=== PATIENT | female | born 1960 | race Caucasian/White ===

== ENCOUNTER 2019-09-29 07:09 | Inpatient (IN) | payer OTHER ==
[2019-09-20 13:59] VITALS: BMI 24.6
--- NOTE | 2019-09-26 12:08 | HP ---
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 Mammogram (10/2018) and MRI (03/2019) were negative. Patient is now presenting for prophylactic mastectomy with implant reconstruction. History Source: Patient Limitations to Obtaining History: No Limitations - Past Medical History Cardiovascular: Yes: Other (Mitral valve disorder) Gastrointestinal: Yes: Inflamatory Bowel Disease (Crohn's dz) ...: No - Advance Directives Advance Directives: Yes: Living Will, Health Care Proxy - Smoking History Smoking history: Former smoker Have you smoked in the past 12 months: No If you are a former smoker, when did you quit?: 1999 - Alcohol/Substance Use Hx Alcohol Use: Yes (1 DRINK- 5 TIMES PER WEEK) Home Medications - Allergies Allergies/Adverse Reactions: Allergies Allergy/AdvReac Type Severity Reaction Status Date / Time iron dextran complex Allergy Severe HIVES, Verified 09/20/19 13:36 RESPIRATORY DISTRESS - Home Medications Home Medications: Ambulatory Orders Adalimumab [Humira(Cf) Pen] 80 mg SQ ASDIR 09/20/19 Alprazolam [Xanax] 0.5 mg PO PRN PRN 09/20/19 Dextroamphetamine/Amphetamine [Adderall 10 mg Tablet] 10 mg PO PRN PRN 09/20/19 Pantoprazole Sodium 40 mg PO DAILY PRN 09/20/19 Family Medical History Family Hx Cancer: Grandmother (paternal) (breast cancer at 80), Mother (breast cancer at 80), Daughter (breast cancer), Brother (prostate cancer at 65) Other Family History: mat cousin breast cancer at 50. pat aunt breast cancer at 70. mat cousin prostate cancer at 60. mat cousin colon cancer at 50 Review of Systems - Review of Systems Constitutional: reports: No Symptoms Cardiovascular: reports: No Symptoms Respiratory: reports: No Symptoms Breasts: reports: No Symptoms Reported Physical Examination Constitutional: Yes: Well Nourished, Calm Breast(s): Yes: Other (Ptotic C-cup breasts without significant skin changes or nipple discharge. No palpable suspicious masses or adenopathy noted bilaterally.) Problem List - Problems (1) At high risk for breast cancer Code(s): Z91.89 - [facility] PERSONAL RISK FACTORS, NOT ELSEWHERE CLASSIFIED (2) Family history of breast cancer Code(s): Z80.3 - FAMILY HISTORY OF MALIGNANT NEOPLASM OF BREAST (3) Positive test for genetic breast cancer susceptibility marker Code(s): Z15.01 - GENETIC SUSCEPTIBILITY TO MALIGNANT NEOPLASM OF BREAST Assessment/Plan Plan: Bilateral mastectomy with reconstruction
[2019-09-29] MEDS ORDERED: BUPIVACAINE HCL/PF 2.5 MG/ML - 30 ML VIAL IJ ONE (08:18)
[2019-09-29] MEDS ORDERED: ceFAZolin SODIUM 1 GM VIAL ONE ×3 (08:18→11:14)
[2019-09-29] MEDS ORDERED: LIDOCAINE 1%/EPI 1:100000 (20 ML MULTI DOSE VIAL) ONE (08:18)
[2019-09-29] MEDS ORDERED: GENTAMICIN SO4 80 MG/2 ML VIAL ONE (08:18)
[2019-09-29] MEDS ORDERED: SUCCINYLCHOLINE CHLORIDE 200 MG/10 ML SYRINGE ONE (08:26)
[2019-09-29] MEDS ORDERED: PROPOFOL 20 ML ONE ×2 (08:26)
[2019-09-29] MEDS ORDERED: fentaNYL CITRATE 250 MCG/5 ML VIAL ONE (08:26)
[2019-09-29] MEDS ORDERED: EPHEDRINE SULFATE/0.9% NACL/PF 50 MG/10 ML SYRINGE NR ONE (08:27)
[2019-09-29] MEDS ORDERED: ROCURONIUM BROMIDE 50 MG/5 ML SYRINGE ONE ×2 (08:27→11:17)
[2019-09-29] MEDS ORDERED: MIDAZOLAM HCL 2 MG/2 ML SINGLE DOSE VIAL ONE (08:27)
[2019-09-29] MEDS ORDERED: BUPIVACAINE LIPOSOME/PF (EXPAREL) 266 MG/20 ML VIAL ONE (09:28)
[2019-09-29] MEDS ORDERED: SCOPOLAMINE HYDROBROMIDE 1 PATCH PATCH.TD72 ONE (09:40)
[2019-09-29] MEDS ORDERED: ONDANSETRON 4 MG/2 ML VIAL ONE ×3 (09:48→11:14)
[2019-09-29] MEDS ORDERED: DEXAMETHASONE SOD PHOSPHATE 4 MG/1 ML VIAL ONE ×3 (09:48→11:14)
[2019-09-29] MEDS ORDERED: HYDROmorphone HCL/PF 1 MG/ML AMP ONE (10:56)
[2019-09-29] MEDS ORDERED: LIDOCAINE HCL/PF 2% SDV 5ML VIAL ONE ×2 (11:15→12:35)
[2019-09-29] MEDS ORDERED: NEOSTIGMINE METHYLSULFATE 0.5 MG/ML - 10 ML MDV ONE (11:15)
[2019-09-29] MEDS ORDERED: ZOLPIDEM TARTRATE 5 MG TABLET PO PRN (11:40)
[2019-09-29] MEDS ORDERED: ONDANSETRON 4 MG/2 ML VIAL IVPUSH PRN (11:40)
[2019-09-29] MEDS ORDERED: PANTOPRAZOLE 40 MG TABLET (FP) PO PRN (11:41)
[2019-09-29] MEDS ORDERED: PATIENT'S OWN MEDICATION (NON-FORMULARY) (Dextroamphetamine/Amphetamine [Adderall 10 Mg Ta PO PRN (11:41)
[2019-09-29] MEDS ORDERED: DEXTROSE 5%-0.45% SALINE 1,000 ML IV SCH (11:45)
[2019-09-29] MEDS ORDERED: ADALIMUMAB 80 MG SQ SCH (11:45)
[2019-09-29] MEDS ORDERED: METOPROLOL TARTRATE 5 MG/5 ML VIAL ONE (12:35)
--- NOTE | 2019-09-29 12:50 | OP ---
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
--- NOTE | 2019-09-29 12:51 | SURG ---
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 For further detail, please refer to operative report. Visit type - Case Type Case Type: Scheduled - Emergency Emergency Visit: No - New patient This patient is new to me today: Yes Date on this admission: 09/29/19
[2019-09-29] MEDS ORDERED: LACTATED RINGERS SOLUTION 1,000 ML IV SCH (13:15)
[2019-09-29] MEDS: oxyCODONE HCL 5 MG TABLET PO PRN ×2 (14:20→21:37)
[2019-09-29] MEDS: ACETAMINOPHEN 325 MG TABLET (FP) PO PRN (14:25)
[2019-09-29] MEDS: CEFAZOLIN 1 GM/D5W 1 GM/50 ML BAG IVPB SCH ×2 (16:00→21:37)
[2019-09-30] MEDS: oxyCODONE HCL 5 MG TABLET PO PRN ×3 (01:30→09:58)
[2019-09-30] MEDS: ACETAMINOPHEN 325 MG TABLET (FP) PO PRN ×2 (01:31→05:36)
[2019-09-30] MEDS: CEFAZOLIN 1 GM/D5W 1 GM/50 ML BAG IVPB SCH ×2 (03:29→10:03)
[2019-09-30 06:56] VITALS: BP 109/65; PULSE 81; TEMP 97.4
[2019-09-30 08:10] LABS: HEMATOCRIT 33.2 % (32.4-45.2); HEMOGLOBIN 11.3 GM/dl (10.7-15.3); MCH 31.1 pg (25.7-33.7); MEAN CELL VOLUME 91.6 fl (80-96); MEAN PLT VOLUME 10.4 fl (7.5-11.1); PLATELET COUNT 272 K/MM3 (134-434); RBC 3.62 M/mm3 (3.60-5.2); RDW 12.5 % (11.6-15.6); WHITE BLOOD COUNT 13.9 K/mm3 (4.0-10.8)
--- NOTE | 2019-09-30 10:27 | PN ---
Progress Note, Physician Chief Complaint: S/P bilateral mastectomy with implant reconstruction POD#1 History of Present Illness: Patient was seen today and reports minimal pain. She is tolerating po well and wishes to go home today. - Current Medication List Current Medications: Active Medications Acetaminophen (Tylenol -) 650 mg PO Q4H PRN PRN Reason: FEVER Last Admin: 09/30/19 05:36 Dose: 650 mg Fentanyl (Sublimaze Injection -) 50 mcg IVPUSH [id number] PRN PRN Reason: PAIN-PACU ORDER X 4 DOSES ONLY Last Admin: 09/29/19 13:10 Dose: 50 mcg Cefazolin Sodium (Ancef 1 Gm Premixed Ivpb -) 1 gm in 50 mls @ 100 mls/hr IVPB Q6H-IV CHEPE Stop: 10/06/19 14:59 Last Admin: 09/30/19 10:03 Dose: 100 mls/hr Dextrose/Sodium Chloride (D5-1/2ns -) 1,000 mls @ 100 mls/hr IV ASDIR CHEPE Lactated Ringer's (Lactated Ringers Solution) 1,000 mls @ 125 mls/hr IV ASDIR CHEPE Non-Formulary Medication (Adalimumab [Humira(Cf) Pen]) 80 mg SQ ASDIR CHEPE Non-Formulary Medication (Dextroamphetamine/Amphetamine [Adderall 10 Mg Tablet] ) 10 mg PO PRN PRN PRN Reason: ADD Ondansetron HCl (Zofran Injection) 4 mg IVPUSH Q6H PRN PRN Reason: NAUSEA AND/OR VOMITING Oxycodone HCl (Roxicodone -) 10 mg PO Q4H PRN PRN Reason: PAIN LEVEL 6-10 Last Admin: 09/30/19 09:58 Dose: 10 mg Pantoprazole Sodium (Protonix -) 40 mg PO DAILY PRN PRN Reason: INDIGESTION Zolpidem Tartrate (Ambien -) 5 mg PO HS PRN PRN Reason: Insomnia - Objective Vital Signs: Vital Signs Temperature 97.4 F L 09/30/19 06:00 Pulse Rate 81 09/30/19 06:00 Respiratory Rate 18 09/30/19 06:00 Blood Pressure 109/65 09/30/19 06:00 O2 Sat by Pulse Oximetry (%) 96 09/30/19 08:58 Constitutional: Yes: Well Nourished, Calm Breast(s): Yes: Other (Flaps are warm. Left with more ecchymosis noted then the right. The nipple is slightly dusky and medial ecchymosis noted as well. Steristrips are intact. GILL x 4 with serosanginous discharge noted.) Labs: CBC, BMP 09/30/19 07:47 Problem List - Problems (1) At high risk for breast cancer Code(s): Z91.89 - OTH PERSONAL RISK FACTORS, NOT ELSEWHERE CLASSIFIED (2) Family history of breast cancer Code(s): Z80.3 - FAMILY HISTORY OF MALIGNANT NEOPLASM OF BREAST (3) Positive test for genetic breast cancer susceptibility marker Code(s): Z15.01 - GENETIC SUSCEPTIBILITY TO MALIGNANT NEOPLASM OF BREAST Assessment/Plan Assess: S/P bilateral mastectomy with implant reconstruction POD#1 Plan; Stable for discharge today Followup with Dr. Bright next week. Pain meds and axbx at home Teach GILL monitoring
--- NOTE | 2019-09-30 11:14 | OP ---
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 PROCEDURE: Bilateral nipple-sparing mastectomies through an inframammary approach with bilateral prepectoral direct implant reconstruction with Cortiva. There were no complications. PRIMARY SURGEON: Sylvia Bright MD BANQUET COORDINATOR: Cinda Love physician financial sales assistant PLASTIC SURGEON: Sylvia Barron MD ANESTHESIA: General laryngeal mask area anesthesia. INDICATION: Briefly, the patient is a 59-year-old G3, P3 white post-menopausal female of Ashkenazi [employer] heritage. She has a strong family history with her daughter, who had triple negative breast cancer at age 35, and her maternal cousin had triple negative breast cancer at age 50. Her mother had breast cancer at age 80. Her brother had prostate cancer at age 65. A paternal aunt had breast cancer at age 70 and her paternal great-grandmother had breast cancer at age 80. A maternal cousin had prostate cancer at age 60 and another maternal cousin had colon cancer at age 50. Both the patient and her daughter tested PALB2 positive. She had mammography in October of 2018 which was negative and an MRI in March 2019 which was negative. She was seen in consultation regarding risk reduction strategies for breast cancer and chose to have risk reduction prophylactic bilateral mastectomies. She understood our technique of a nipple-sparing mastectomy through an inframammary approach and direct implant reconstruction. She understood all risks and complications of the procedure, including the risk of skin flap necrosis, nipple loss, hematoma and infection. She understood that we do retroareolar biopsies at the time of surgery. If these show cancer, we would remove the nipples. She understood the lack of any evidence prophylactic sentinel lymph node biopsy. The patient decided to go forward with the surgery. PROCEDURE IN DETAIL: The patient was brought in on September 29, 2019. In the holding area, site verification was made and informed consent was obtained. She was marked preoperatively by the plastic surgeon. The patient was brought into the operating room and laid on the OR table in the supine position. She received two grams of Ancef prior to incision. Both breasts were sterilely prepped and draped in the usual fashion. Venodynes were placed on her lower extremities prior to induction. She underwent general laryngeal mask anesthesia and was sterilely prepped and draped in the usual fashion. The left mastectomy was performed first. Inframammary incisions were marked out bilaterally about 10 cm in length. The left mastectomy was performed through this inframammary incision. The skin edges were everted and the breast was retracted inferiorly using Walker clamps. The skin flap was raised using the PEAK radiofrequency device, raising the skin flap superiorly to the level of the clavicle, medially to the level of the sternum, laterally to the level of the latissimus and inferiorly below the level of the inframammary fold. The breast was taken out off the pectoralis major muscle from inferomedial to superolateral and completely removed intact. It was oriented with a long lateral short-tip suture and weighed to allow for appropriate cosmetic result. A retroareolar biopsy was taken underneath the left nipple-areolar complex and sent for frozen section. It came back negative and the left nipple was able to be spared. Again, hemostasis was achieved. The skin flaps were inspected to remove all visible breast tissue and they were trimmed to allow for a good cosmetic result. At this point, the right mastectomy was performed, again through a symmetrical inframammary incision about 10 cm in length. Again, the skin edges were everted and the breast was retracted inferiorly using Walker clamps. The skin flap was again raised using the PEAK radiofrequency device superiorly to the level of the clavicle, medially to the level of the sternum, laterally to the level of the latissimus and inferiorly below the level of the inframammary fold. The breast was taken out off the pectoralis major muscle, again using electrocautery from inferomedial to superolateral and completely removed intact. It was oriented with a long lateral short-tip suture and weighed to allow for appropriate cosmetic result. Both breasts were placed in formalin after having been oriented with the long lateral short-tip sutures and sent to pathology as specimen. A retroareolar biopsy was taken underneath the right nipple-areolar complex and sent for frozen section. It came back negative, so the right nipple was spared as well. Hemostasis was achieved. The skin flaps were inspected to remove all visible breast tissue and they were trimmed to allow for a good cosmetic result. Hemostasis was achieved. The wound was copiously irrigated with warm sterile saline. The SPY skin perfusion device was then used during the case and showed good blood flow bilaterally to the skin flaps. At this point, Dr. Barron performed bilateral prepectoral direct implant reconstruction using Cortiva acellular dermal matrix. This will be dictated separately by Dr. Barron. All wounds will be closed separately by Dr. Barron. Rafael drains will be placed prior to closure. All sponge and needle counts were correct at this point in the case. Estimated blood loss was about 125 mL. She was hemodynamically stable. After the reconstruction, the patient will have the laryngeal mask airway tube removed and will be recovered in the post-anesthesia care unit. She will be admitted postoperatively for pain and wound management. We did inject 30 mL of Exparel into the chest wall on both mastectomy sites bilaterally for a total of 60 mL. SYLVIA BRIGHT M.D. [id number]
--- NOTE | 2019-10-03 09:02 | OP ---
DATE OF OPERATION: 09/29/2019 PREOPERATIVE DIAGNOSES: 1. Bilateral acquired chest wall deformity status post bilateral mastectomy (611.89). 2. Personal history of genetic carcinoma. POSTOPERATIVE DIAGNOSES: 1. Bilateral acquired chest wall deformity status post bilateral mastectomy (611.89). 2. Personal history of genetic carcinoma. PROCEDURE: 1. Right immediate breast reconstruction utilizing immediate insertion of silicone breast implant and AlloDerm reconstruction. 2. Left immediate breast reconstruction utilizing immediate insertion of silicone breast implant and AlloDerm reconstruction. 3. Intravenous injection of indocyanine green dye and intraoperative diagnostic evaluation of non-coronary intraoperative fluorescein vascular angiography x 2. SURGEON: Dr. Radha Barron OBGYN SPECIALIST SURGEON: EDVIN Yoon ANESTHESIA: General. ANESTHESIOLOGIST: OPERATIVE PROCEDURE IN DETAIL: The patient was taken to the operating room. After induction of general anesthesia in the supine position, both arms were extended and padded. Venodyne boots were placed. The entire chest wall was painted with ChloraPrep solution over its entire extent, and sterile drapes were placed in the usual fashion. The markings, which had been made in the standing position preoperatively, were reoutlined with the patient's knowledge. Time-out procedure was performed. Attention was turned by Dr. Sylvia Bright to the mastectomies. Bilateral inframammary incisions were made and Dr. Sylvia Bright performed mastectomies. This will be dictated under separate cover. Upon completion of the mastectomies, the wounds were copiously irrigated and attention was turned to the right breast. A subpectoral dissection was begun on the right breast, superiorly from the second rib, medially to the sternal fibers, and down to the inframammary fold, elevating the pectoralis major muscle from its insertion. At this point, an 8.0 x 16.0 sheet of AlloDerm was brought into the field and sutured superiorly along the pectoralis major muscle after rehydration. This was carried along the lateral mammary fold and down the side of the breast reconstruction. At this point, a Sientra smooth, round, high profile 470 mL style 107 implant was chosen. The left breast tissue removed was 312 gm, and the right breast approximately 238 gm. This implant was placed and then sutured with 3-0 Vicryl suture continued along the inframammary fold, completely covering the implant itself. She had Cortiva 1-mm allograft dermis 16 x 20 cm placed over each implant and sutured to a 15 x 15 sheet of ProGrip mesh and placed in a subpectoral position. The exact same procedure was carried out symmetrically on the opposite breast, also placing a Sientra smooth, round, high profile 470 mL style 107 implant in the same subpectoral pocket. Good symmetry was seen in the sitting position. After the implants were in place, the patient was injected with 10 mL of Isocyanide green dye and the Spy imaging system was brought into the field. The skin flowed to the right and left breasts and the nipple areolar complex, and the entire skin flaps were evaluated and seen to be viable with good blood flow. Two 15 Rafael drains were brought out through separate stab wounds laterally. The Spy showed good viability of the skin and tissues. The Smart Infuser pump catheter was inserted medially and into the subpectoral position. Both wounds were closed symmetrically using 3-0 PDS suture on the deep tissue, 3-0 in a deep dermal fashion, and 4-0 in a subcuticular fashion. Both wounds were dressed sterilely with Mastisol and Steri-Strips with a surgical bra and a compression strap. The patient tolerated the procedure well. She was awakened, extubated and transferred to the recovery room in satisfactory condition. The boilermaker's assistant was present during the entire portion of the operation and closure. SYLVIA BARRON M.D. [id number]
--- NOTE | 2019-10-03 14:26 | PATH ---
Surgical Pathology Report Patient Name: BRIDGETTE PEDERSEN [facility]. Rec. #: [id number] /Age/Gender: 1960 (Age: 59) / F Account: [id number] Location: [facility] MED-SURG Taken: 09/29/2019 Received: 09/29/2019 Reported: 10/03/2019 Physicians: Jeffrey Bright M.D. Specimen(s) Received A: RIGHT RETROAREOLAR BIOPSY (FS) B: LEFT RETROAREOLAR BIOPSY (FS) C: RIGHT BREAST MASTECTOMY D: LEFT BREAST MASTECTOMY Clinical History High risk for breast cancer Intraoperative Consult Diagnosis A. Right retroareolar biopsy, frozen section: Negative for malignancy. B. Left retroareolar biopsy, frozen section: Negative for malignancy. Caio Gomez 09/29/19 Final Diagnosis A. RETROAREOLA, RIGHT, BIOPSY (FS): BENIGN BREAST TISSUE; NEGATIVE FOR MALIGNANCY. B. RETROAREOLA, LEFT, BIOPSY (FS): BENIGN BREAST TISSUE; NEGATIVE FOR MALIGNANCY. C. BREAST, RIGHT, NIPPLE-SPARING MASTECTOMY: BENIGN BREAST TISSUE SHOWING FIBROCYSTIC CHANGES INCLUDING CYSTIC APOCRINE METAPLASIA, ECTATIC DUCTS, FOCAL APOCRINE ADENOSIS, STROMAL FIBROSIS AND FIBROADENOMATOID CHANGE. D. BREAST, LEFT, NIPPLE-SPARING MASTECTOMY: BENIGN BREAST TISSUE SHOWING FIBROCYSTIC CHANGES INCLUDING CYSTIC APOCRINE METAPLASIA, USUAL DUCTAL HYPERPLASIA (UDH), ECTATIC DUCTS AND STROMAL FIBROSIS. Electronically Signed Christianne Sweet M.D. Gross Description A. Received fresh for frozen section evaluation, labeled "right retroareolar biopsy" is a 1.5 x 0.7 x 0.2 cm portion of red and pink-key, soft tissue. Frozen section is performed on the specimen. The frozen section residue is entirely submitted in one cassette. B. Received fresh for frozen section evaluation, labeled "left retroareolar biopsy" is a 1.5 x 0.5 x 0.2 cm portion of red and pink-key, soft tissue. Frozen section is performed on the specimen. The frozen section residue is entirely submitted in one cassette. C. Received in formalin, labeled "right breast mastectomy," is a 249 gram, 15.0 x 13.5 x 2.0 cm. right mastectomy specimen with a short suture marking the superior aspect and a long suture marking the lateral aspect of the specimen, per the surgeon. There is no skin or nipple present. The deep margin is inked black and the anterior soft tissue margin is inked blue. The specimen is serially sectioned from lateral to medial. Sectioning reveals multifocal white fibrous tissue. [employer] sections are submitted in 14 cassettes as follows: 1-3-upper outer quadrant; 4-6-lower outer quadrant; 7-9-upper inner quadrant; 10-12-lower inner quadrant 13-anterior soft tissue margin; 14-deep margin. Time to formalin fixation: 35 minutes Total formalin fixation time: Approximately 31 hours. D. Received in formalin, labeled "left breast mastectomy," is a 327 gram, 15.5 x 15.0 x 2.5 cm. left mastectomy specimen with a short suture marking the superior aspect and a long suture marking the lateral aspect of the specimen, per the surgeon. There is no skin or nipple present. The deep margin is inked black and the anterior soft tissue margin is inked blue. The specimen is serially sectioned from medial to lateral. Sectioning reveals multifocal white fibrous tissue. [employer] sections are submitted in 14 cassettes as follows: 1-4-upper outer quadrant; 5-6-lower outer quadrant; 7-9-upper inner quadrant; 10-12-lower inner quadrant; 13-anterior soft tissue margin; 14-deep margin. Time to formalin fixation: 15 minutes Total formalin fixation time: Approximately 31 hours. AE/09/29/2019 ebram/09/29/2019
== END 2019-09-30 12:13 | disposition home or self-care (01) | DRG 362 ==
LOC: FM/S 07:09
PROVIDERS: ADMIT Surgery Surgical Oncology; ATTEND Surgery Surgical Oncology
PROC: 4A1GXSH Monitoring of Skin and Breast Vascular Perfusion using Indocyanine Green Dye, External Approach (ICD-10-PCS; 2019-09-29)
PROC: 0HTV0ZZ Resection of Bilateral Breast, Open Approach (ICD-10-PCS; principal; 2019-09-29 10:12)
PROC: 0HUV0JZ Supplement Bilateral Breast with Synthetic Substitute, Open Approach (ICD-10-PCS; 2019-09-29 10:12)
DX: Z40.01 Encounter for prophylactic removal of breast (principal); I05.9 Rheumatic mitral valve disease, unspecified; K50.90 Crohn's disease, unspecified, without complications; Z80.3 Family history of malignant neoplasm of breast; M95.4 Acquired deformity of chest and rib
CPT/HCPCS: 36415; 85027; 88307-TC; 88331-TC; 94760